=== PATIENT | female | born 1970 | race Caucasian/White ===

== ENCOUNTER 2017-04-10 14:04 | Inpatient (IN) | payer OTHER ==
[~2017-04-10] VITALS: Ht 165.1 cm; Wt 110.8 kg
[2017-04-10 14:18] VITALS: BP 135/73
[2017-04-10] MEDS ORDERED: ATENOLOL25 MG PO (14:23)
[2017-04-10] MEDS ORDERED: ADVAIR 250/5028 PUFF IN (14:23)
--- NOTE | 2017-04-10 15:43 | RADIOLOGY REPORT PS360 ---
CHEST(2 VIEWS-NOT PORTABLE) HISTORY: COUGH,CONGESTION ORDERING PHYSICIAN: Cecilia Griffiths MD PATIENT AGE: 47 years COMPARISON: None available FINDINGS: Normal heart size. There is diffuse bilateral opacification of the lungs. This has a somewhat nodular appearance in the right midlung, right suprahilar region, and left suprahilar area. While this may only be related to diffuse pneumonia, pulmonary masses with consolidation is also considered. Recommend follow-up exam following adequate treatment for pneumonia. If the opacity persists then CT will be needed for further evaluation. No acute bony anomalies. No obvious effusion. IMPRESSION Diffuse bilateral lung opacification probably related to diffuse pneumonia. Cannot exclude ill-defined nodular lesions. Follow-up recommended
--- NOTE | 2017-04-10 16:06 | Emergency Room Report ---
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 Y Clinical Suspician of Infection? N Mental Status: 1 - Regular (Normal Baseline) Sepsis Risk:Low Sepsis Risk Have you (or family members/close friends) recently traveled outside the [place]? N If Yes, where/when: Have you had exposure to infectious disease within the past month? TB? Other? Specify: I had reviewed the history OBTAINED ABOVE, IN ADDITIN SHE HAS DIARRHEA. Source patient, RN notes reviewed Exam Limitations no limitations ALLERGIES Coded Allergies: codeine (Mild, 04/10/17) Home Medications Reported Medications FLUTICASONE/SALMETEROL (Advair 250-50 Diskus) 1 PUFF IN BID Atenolol (Atenolol) 12.5 MG PO DAILY History Medical History General More? 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 Respiratory see HPI, cough, shortness of breath Cardiovascular no symptoms reported Gastrointestinal denies see HPI, diarrhea (DEC PO INTAKE) Genitourinary no symptoms reported. Musculoskeletal no symptoms reported Skin no symptoms reported Psychiatric/Neurological no symptoms reported Physical Exam Vital Signs Vital Signs Date Time Temp Pulse Resp B/P Pulse O2 O2 Flow FiO2 Ox Delivery Rate 04/10 1539 101 14 149/82 96 04/10 1418 99.8 106 18 135/73 92 - WBC >12,000 or <4,000 or 10% bands? 2 or more SIRS Criteria Met? B/P:149/82 MAP:93 Creatinine >2.0? UA output<0.5ml/kg/hr for 2 hrs? Platelet count >100,000? Lactate >2.0mmol/1? INR >1.2 or PTT > than 60 sec? Evidence of Organ Dysfunction? Provider documented clinical suspician of infection? N Sepsis Criteria Count: 1 Sepsis Risk: Low Sepsis Risk General Appearance normal appearance, WD/WN Eye Exam - bilateral eye normal exam, bilateral eye PERRL, bilateral eye EOMI Ear, Nose, Throat hearing grossly normal, normal ENT inspection Neck normal inspection, non-tender, supple, full range of motion Respiratory Status Yes: trachea midline, chest symmetrical, non tender chest. No: respiratory distress. Lung Sounds bilateral: normal breath sounds, lungs clear. 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 No Results/Orders Laboratory Tests 04/10/17 1425: Influenza Type A Ag NOT DETECTED, Influenza Type B Ag NOT DETECTED Current Medication Orders Sig/Yoly Start time Last Medication Dose Route Stop Time Status Admin Ceftriaxone Sodium 0 .STK-MED ONE 04/10 1556 DC IV Sodium Chloride 100 ML .STK-MED ONE 04/10 1556 DC IV Ceftriaxone Sodium 1 GM ONCE ONE 04/10 1545 DC 04/10 Sodium Chloride 50 ML IV 04/10 1614 1602 Orders Procedure Date/time Status DIFFERENTIAL-WBC 04/10 1650 Active CULTURE, BLOOD 04/10 1542 Active LACTIC ACID 04/10 1542 Active URINALYSIS/COMPLETE 04/10 1534 Active CBC WITH AUTO DIFF 04/10 1534 Active CHEM 12 PROFILE 04/10 1534 Complete CULTURE, THROAT 04/10 1528 Active STREP SCREEN THROAT 04/10 1527 Complete INFLUENZA A&B ANTIGENS 04/10 1426 Complete XRAY/CT/US XRAY/CT/US XRAY chest XR interpretation by discussed w/radiologist Xray Results BILATRAL INFILTRATES Departure Departure Time of Disposition 1558 Disposition Still a Patient Clinical Impression Primary Impression: Community acquired bacterial pneumonia Secondary Impressions: Hypokalemia Condition STABLE Referrals Ra Lobato MD Additional Instructions I DISUCSSED WITHG DR LOBATO WHO AGREED TO ADMIT FOR IV ANTIBIOTICS. dr lobato presented to the Ed and interviewed and examnied the patient Discharge Counseling Counseled pt/family regarding diagnosis, test results, follow up needs ED Critical Care Critical Care No If Critical Care minutes are documented, the time involved in the performance of seperately reportable procedures was not counted toward critical care time documented. I directly delivered medical care to this critically ill and/or injured patient. Timely evaluation and treatment was necessary to address the significant organ system(s) dysfunction present in this patient. at [id number]
--- NOTE | 2017-04-10 16:06 | Emergency Room Report ---
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 Y Clinical Suspician of Infection? N Mental Status: 1 - Regular (Normal Baseline) Sepsis Risk:Low Sepsis Risk Have you (or family members/close friends) recently traveled outside the [place]? N If Yes, where/when: Have you had exposure to infectious disease within the past month? TB? Other? Specify: I had reviewed the history OBTAINED ABOVE, IN ADDITIN SHE HAS DIARRHEA. Source patient, RN notes reviewed Exam Limitations no limitations ALLERGIES Coded Allergies: codeine (Mild, 04/10/17) Home Medications Reported Medications FLUTICASONE/SALMETEROL (Advair 250-50 Diskus) 1 PUFF IN BID Atenolol (Atenolol) 12.5 MG PO DAILY History Medical History General More? 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 Respiratory see HPI, cough, shortness of breath Cardiovascular no symptoms reported Gastrointestinal denies see HPI, diarrhea (DEC PO INTAKE) Genitourinary no symptoms reported. Musculoskeletal no symptoms reported Skin no symptoms reported Psychiatric/Neurological no symptoms reported Physical Exam Vital Signs Vital Signs Date Time Temp Pulse Resp B/P Pulse O2 O2 Flow FiO2 Ox Delivery Rate 04/10 1539 101 14 149/82 96 04/10 1418 99.8 106 18 135/73 92 - WBC >12,000 or <4,000 or 10% bands? 2 or more SIRS Criteria Met? B/P:149/82 MAP:93 Creatinine >2.0? UA output<0.5ml/kg/hr for 2 hrs? Platelet count >100,000? Lactate >2.0mmol/1? INR >1.2 or PTT > than 60 sec? Evidence of Organ Dysfunction? Provider documented clinical suspician of infection? N Sepsis Criteria Count: 1 Sepsis Risk: Low Sepsis Risk General Appearance normal appearance, WD/WN Eye Exam - bilateral eye normal exam, bilateral eye PERRL, bilateral eye EOMI Ear, Nose, Throat hearing grossly normal, normal ENT inspection Neck normal inspection, non-tender, supple, full range of motion Respiratory Status Yes: trachea midline, chest symmetrical, non tender chest. No: respiratory distress. Lung Sounds bilateral: normal breath sounds, lungs clear. 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 No Results/Orders Laboratory Tests 04/10/17 1425: Influenza Type A Ag NOT DETECTED, Influenza Type B Ag NOT DETECTED Current Medication Orders Sig/Yoly Start time Last Medication Dose Route Stop Time Status Admin Ceftriaxone Sodium 0 .STK-MED ONE 04/10 1556 DC IV Sodium Chloride 100 ML .STK-MED ONE 04/10 1556 DC IV Ceftriaxone Sodium 1 GM ONCE ONE 04/10 1545 DC 04/10 Sodium Chloride 50 ML IV 04/10 1614 1602 Orders Procedure Date/time Status DIFFERENTIAL-WBC 04/10 1650 Active CULTURE, BLOOD 04/10 1542 Active LACTIC ACID 04/10 1542 Active URINALYSIS/COMPLETE 04/10 1534 Active CBC WITH AUTO DIFF 04/10 1534 Active CHEM 12 PROFILE 04/10 1534 Complete CULTURE, THROAT 04/10 1528 Active STREP SCREEN THROAT 04/10 1527 Complete INFLUENZA A&B ANTIGENS 04/10 1426 Complete XRAY/CT/US XRAY/CT/US XRAY chest XR interpretation by discussed w/radiologist Xray Results BILATRAL INFILTRATES Departure Departure Time of Disposition 1558 Disposition Still a Patient Clinical Impression Primary Impression: Community acquired bacterial pneumonia Secondary Impressions: Hypokalemia Condition STABLE Referrals Ra Lobato MD Additional Instructions I DISUCSSED WITHG DR LOBATO WHO AGREED TO ADMIT FOR IV ANTIBIOTICS. dr lobato presented to the Ed and interviewed and examnied the patient Discharge Counseling Counseled pt/family regarding diagnosis, test results, follow up needs ED Critical Care Critical Care No If Critical Care minutes are documented, the time involved in the performance of seperately reportable procedures was not counted toward critical care time documented. I directly delivered medical care to this critically ill and/or injured patient. Timely evaluation and treatment was necessary to address the significant organ system(s) dysfunction present in this patient. at [id number]
[2017-04-10 17:08] LABS: HEMOGLOBIN 14.3 g/dL (12.2-16.2); LYMPH # 0.8 K/mm3 (0.7-4.5); LYMPH % 32.4 % (10-50.0)
--- NOTE | 2017-04-10 17:35 | HISTORY AND PHYSICAL REPORT ---
Demographics: Admit date: 04/10/17 Chief complaint: Fever and malaise PRIMARY DIAGNOSIS: BILATERAL PNEUMONIA Allergies: Coded Allergies: codeine (Mild, 04/10/17) History of present illness: History of present illness: 47-year-old female presented to the emergency department today with persistent fevers and malaise along with dry nonproductive cough. Her illness began April 05 and she presented to an outside clinic when she thought she had a "sinus infection". At that time the patient had symptoms of rhinorrhea and nasal congestion. Over the course of the week the patient's symptoms worsened and she developed fevers as high as 102.1 at home. She did not feels if she was getting any better and presented to the emergency department. In the emergency department her evaluation was rather unremarkable. On her lung exam she had some mild wheezing but on chest x-ray had bilateral infiltrates. Patient has been admitted for observation as it is felt her condition could worsen. Patient admits to fevers, chills, poor appetite. Past medical history: Family HX Family Hx Insignificant No Immunization HX Ped.Immunizations UTD Yes DT/Tetanus 1-4 Years Ago General More? Yes Additional hx: X Past Surgical HX Previous Surgery?N Current home meds: Reported Medications FLUTICASONE/SALMETEROL (Advair 250-50 Diskus) 1 PUFF IN BID Atenolol (Atenolol) 12.5 MG PO DAILY Social Hx: Smoking HX Tobacco No Type N/A Are you/the child exposed to second-hand smoke: No Alcohol Alcohol: No Hx of Drug Use Drug Use? No Review of systems: Constitutional see HPI. Respiratory see HPI. Cardiovascular no symptoms reported Gastrointestinal/Abdominal no symptoms reported Genitourinary no symptoms reported. Musculoskeletal no symptoms reported. Neurological Yes: no symptoms reported. Exam: Lab data for last 24 hours: Laboratory Tests 04/10/17 1650: Lactic Acid 0.7 04/10/17 1650: Sodium 134 L, Potassium 3.2 L, Chloride 97 L, Carbon Dioxide 27, BUN 7, Creatinine 0.8, Estimated Creat Clear 154, Estimated GFR (MDRD) 77, Glucose 107 H, Calcium 7.5 L, Total Bilirubin 0.2, AST 83 H, ALT 46, Alkaline Phosphatase 91, Total Protein 6.9, Albumin 2.9 L, Globulin 4.0 H, Albumin/Globulin Ratio 0.7 L, WBC 2.6 L, RBC 4.57, Hgb 14.3, Hct 41.1, MCV 89.9, RDW 12.1, Plt Count 138 L, MPV 8.6, Gran % 62.4, Gran # 1.6 L, Lymphocytes % 32.4, Monocytes % 4.2 , Eosinophils % 0.3, Basophils % 0.8, Lymphocytes # 0.8, Monocytes # 0.1, Eosinophils # 0.0, Basophils # 0.0, PUBS MCHC 34.9, MCH 31.3 H 04/10/17 1425: Influenza Type A Ag NOT DETECTED, Influenza Type B Ag NOT DETECTED Microbiology 04/10 1542 BLOOD: Anaerobic Blood Culture - ORD 04/10 1542 BLOOD: Aerobic Blood Culture - ORD 04/10 1542 BLOOD: Anaerobic Blood Culture - ORD 04/10 1542 BLOOD: Aerobic Blood Culture - ORD 04/10 1528 THROAT: Throat Culture - RECD 04/10 UNK BLOOD: Anaerobic Blood Culture - CAN Cancelled: DUPLICATE REFER TO [id number] AND [id number] ORDERED BY 04/10 UNK BLOOD: Aerobic Blood Culture - CAN Cancelled: DUPLICATE REFER TO [id number] AND [id number] ORDERED BY 04/10 UNK BLOOD: Anaerobic Blood Culture - CAN Cancelled: DUPLICATE REFER TO [id number] AND [id number] ORDERED BY 04/10 UNK BLOOD: Aerobic Blood Culture - CAN Cancelled: DUPLICATE REFER TO [id number] AND [id number] ORDERED BY Admission vital signs: Vital Signs Date Time Temp Pulse Resp B/P Pulse O2 O2 Flow FiO2 Ox Delivery Rate 04/10 1539 101 14 149/82 96 04/10 1418 99.8 106 18 135/73 92 Exam General appearance: normal appearance, alert, awake Eyes: normal exam, anicteric ENT: normal exam, mucous membranes moist Neck: normal inspection, non-tender, no carotid bruit, no JVD Cardiovascular: normal exam Respiratory: aerating well, good air movement, no respiratory distress, wheezing (LEFT LUNG) ABD: normal exam, non-distended, normal bowel sounds Extremities: normal exam Plan: Problem List 1. Community acquired bacterial pneumonia 2. Hypokalemia Plan: Patient will be admitted for observation and placed on Rocephin and azithromycin with blood cultures being drawn. Patient will be observed for fevers. Viral respiratory panel has also been ordered at 1737
--- NOTE | 2017-04-10 17:35 | HISTORY AND PHYSICAL REPORT ---
Demographics: Admit date: 04/10/17 Chief complaint: Fever and malaise PRIMARY DIAGNOSIS: BILATERAL PNEUMONIA Allergies: Coded Allergies: codeine (Mild, 04/10/17) History of present illness: History of present illness: 47-year-old female presented to the emergency department today with persistent fevers and malaise along with dry nonproductive cough. Her illness began April 05 and she presented to an outside clinic when she thought she had a "sinus infection". At that time the patient had symptoms of rhinorrhea and nasal congestion. Over the course of the week the patient's symptoms worsened and she developed fevers as high as 102.1 at home. She did not feels if she was getting any better and presented to the emergency department. In the emergency department her evaluation was rather unremarkable. On her lung exam she had some mild wheezing but on chest x-ray had bilateral infiltrates. Patient has been admitted for observation as it is felt her condition could worsen. Patient admits to fevers, chills, poor appetite. Past medical history: Family HX Family Hx Insignificant No Immunization HX Ped.Immunizations UTD Yes DT/Tetanus 1-4 Years Ago General More? Yes Additional hx: X Past Surgical HX Previous Surgery?N Current home meds: Reported Medications FLUTICASONE/SALMETEROL (Advair 250-50 Diskus) 1 PUFF IN BID Atenolol (Atenolol) 12.5 MG PO DAILY Social Hx: Smoking HX Tobacco No Type N/A Are you/the child exposed to second-hand smoke: No Alcohol Alcohol: No Hx of Drug Use Drug Use? No Review of systems: Constitutional see HPI. Respiratory see HPI. Cardiovascular no symptoms reported Gastrointestinal/Abdominal no symptoms reported Genitourinary no symptoms reported. Musculoskeletal no symptoms reported. Neurological Yes: no symptoms reported. Exam: Lab data for last 24 hours: Laboratory Tests 04/10/17 1650: Lactic Acid 0.7 04/10/17 1650: Sodium 134 L, Potassium 3.2 L, Chloride 97 L, Carbon Dioxide 27, BUN 7, Creatinine 0.8, Estimated Creat Clear 154, Estimated GFR (MDRD) 77, Glucose 107 H, Calcium 7.5 L, Total Bilirubin 0.2, AST 83 H, ALT 46, Alkaline Phosphatase 91, Total Protein 6.9, Albumin 2.9 L, Globulin 4.0 H, Albumin/Globulin Ratio 0.7 L, WBC 2.6 L, RBC 4.57, Hgb 14.3, Hct 41.1, MCV 89.9, RDW 12.1, Plt Count 138 L, MPV 8.6, Gran % 62.4, Gran # 1.6 L, Lymphocytes % 32.4, Monocytes % 4.2 , Eosinophils % 0.3, Basophils % 0.8, Lymphocytes # 0.8, Monocytes # 0.1, Eosinophils # 0.0, Basophils # 0.0, PUBS MCHC 34.9, MCH 31.3 H 04/10/17 1425: Influenza Type A Ag NOT DETECTED, Influenza Type B Ag NOT DETECTED Microbiology 04/10 1542 BLOOD: Anaerobic Blood Culture - ORD 04/10 1542 BLOOD: Aerobic Blood Culture - ORD 04/10 1542 BLOOD: Anaerobic Blood Culture - ORD 04/10 1542 BLOOD: Aerobic Blood Culture - ORD 04/10 1528 THROAT: Throat Culture - RECD 04/10 UNK BLOOD: Anaerobic Blood Culture - CAN Cancelled: DUPLICATE REFER TO [id number] AND [id number] ORDERED BY 04/10 UNK BLOOD: Aerobic Blood Culture - CAN Cancelled: DUPLICATE REFER TO [id number] ORDERED BY 04/10 UNK BLOOD: Anaerobic Blood Culture - CAN Cancelled: DUPLICATE REFER TO [id number] AND [id number] ORDERED BY 04/10 UNK BLOOD: Aerobic Blood Culture - CAN Cancelled: DUPLICATE REFER TO [id number] AND [id number] ORDERED BY Admission vital signs: Vital Signs Date Time Temp Pulse Resp B/P Pulse O2 O2 Flow FiO2 Ox Delivery Rate 04/10 1539 101 14 149/82 96 04/10 1418 99.8 106 18 135/73 92 Exam General appearance: normal appearance, alert, awake Eyes: normal exam, anicteric ENT: normal exam, mucous membranes moist Neck: normal inspection, non-tender, no carotid bruit, no JVD Cardiovascular: normal exam Respiratory: aerating well, good air movement, no respiratory distress, wheezing (LEFT LUNG) ABD: normal exam, non-distended, normal bowel sounds Extremities: normal exam Plan: Problem List 1. Community acquired bacterial pneumonia 2. Hypokalemia Plan: Patient will be admitted for observation and placed on Rocephin and azithromycin with blood cultures being drawn. Patient will be observed for fevers. Viral respiratory panel has also been ordered at 1734
[2017-04-10 17:44] LABS: NEUTROPHILS 58 % (42-76)
[2017-04-10 18:59] VITALS: BP 142/65
[2017-04-10 19:20] VITALS: BP 91/55
[2017-04-10 19:38] LABS: CORONAVIRUS 229E NOT DETECTED (NOT DETECTE); CORONAVIRUS HKU 1 NOT DETECTED (NOT DETECTE); CORONAVIRUS NL63 NOT DETECTED (NOT DETECTE); CORONAVIRUS OC43 NOT DETECTED (NOT DETECTE); RHINOVIRUS/ENTEROVIRUS NOT DETECTED (NOT DETECTE)
[2017-04-10] MEDS ORDERED: LEVOTHYROXINE0.05 M3 NG (20:53)
[2017-04-10 23:44] VITALS: BP 150/74
[2017-04-11 02:40] LABS: URINE BILIRUBIN - DIPSTICK NEGATIVE (NEG); URINE BLOOD 3+ (NEG)
[2017-04-11 04:32] VITALS: BP 152/72
[2017-04-11 07:08] LABS: HEMOGLOBIN 13.5 g/dL (12.2-16.2); LYMPH # 1.2 K/mm3 (0.7-4.5); LYMPH % 40.2 % (10-50.0)
--- NOTE | 2017-04-11 07:29 | ACUTE CARE PROGRESS NOTE (QUA) ---
Progress Notes Subjective Date 04/11/17 Time 0728 Note Patient developed an oxygen requirement yesterday evening. O2 sats dropped to 8485 percent on room air. O2 sats around the 90s with the addition of oxygen via nasal cannula. Patient did not have any temperature detected over 100 degrees. Patient states she feels about the same. She does not look ill. Lungs are relatively clear. Heart has a regular rate and rhythm. Continue Rocephin and azithromycin for community-acquired pneumonia. Change duo nebs to as needed. Repeat chest x-ray tomorrow Objective Findings Laboratory Tests 04/11/17 0646: WBC 2.9 L, RBC 4.36, Hgb 13.5, Hct 39.3, MCV 90.0, RDW 12.1, Plt Count 146, MPV 8.5, Gran % 52.5, Gran # 1.5 L, Lymphocytes % 40.2, Monocytes % 5.9, Eosinophils % 0.6, Basophils % 0.8, Lymphocytes # 1.2, Monocytes # 0.2, Eosinophils # 0.0, Basophils # 0.0, PUBS MCHC 34.4, MCH 30.9 04/11/17 0100: Urine Color YELLOW, Urine Appearance CLEAR, Urine pH 7.0, Ur Specific [employer] <= 1.005, Urine Protein 1+ H, Urine Ketones NEGATIVE, Urine Blood 3+ H, Urine Nitrate NEGATIVE, Urine Bilirubin NEGATIVE, Urine Urobilinogen 0.2, Ur Leukocyte Esterase NEGATIVE, Urine RBC 10-20, Urine WBC 3-5, Ur Squamous Epith Cells 5-10, Urine Bacteria 1+, Urine Glucose NEGATIVE 04/10/17 1930: Chlamy pneum (TEM-PCR) NOT DETECTED, Adenovirus (PCR) NOT DETECTED, B. pertussis DNA (PCR) NOT DETECTED, Coronavirus OC43 (PCR) NOT DETECTED, Coronavirus HKU1 ( PCR) NOT DETECTED, Coronavirus 229E (PCR) NOT DETECTED, Coronavirus NL63 (PCR) NOT DETECTED, Human Metapneumovir PCR NOT DETECTED, Influenza A (H1) PCR NOT DETECTED, Influ A (H1N1/09) PCR NOT DETECTED, Influenza A (H3) PCR NOT DETECTED, Influenza Type A (PCR) NOT DETECTED, Influenza Type B (PCR) NOT DETECTED, M. pneumoniae (PCR) NOT DETECTED, Parainfluenza 1 (PCR) NOT DETECTED, Parainfluenza 2 (PCR) NOT DETECTED, Parainfluenza 3 (PCR) NOT DETECTED, Parainfluenza 4 (PCR) NOT DETECTED, RSV (PCR) NOT DETECTED, Entero/Rhino (PCR) NOT DETECTED 04/10/17 1650: Lactic Acid 0.7 04/10/17 1650: Sodium 134 L, Potassium 3.2 L, Chloride 97 L, Carbon Dioxide 27, BUN 7, Creatinine 0.8, Estimated Creat Clear 154, Estimated GFR (MDRD) 77, Glucose 107 H, Calcium 7.5 L, Total Bilirubin 0.2, AST 83 H, ALT 46, Alkaline Phosphatase 91, Total Protein 6.9, Albumin 2.9 L, Globulin 4.0 H, Albumin/Globulin Ratio 0.7 L, WBC 2.6 L, RBC 4.57, Hgb 14.3, Hct 41.1, MCV 89.9, RDW 12.1, Plt Count 138 L, MPV 8.6, Gran % 62.4, Gran # 1.6 L, Total Counted 50, Lymphocytes % 32.4, Monocytes % 4.2, Eosinophils % 0.3, Basophils % 0.8, Neutrophils 58, Lymphocytes (Manual) 38, Lymphocytes # 0.8, Monocytes (Manual) 2, Monocytes # 0.1, Eosinophils # 0.0, Basophils # 0.0, Atypical Lymphocytes 2, Platelet Estimate SLIGHT DECREASE, PUBS MCHC 34.9, MCH 31.3 H, Mycoplasma pneumon IgM NON-REACTIVE 04/10/17 1425: Influenza Type A Ag NOT DETECTED, Influenza Type B Ag NOT DETECTED Microbiology 04/11 108 SPUTUM: Organism ID (Sequencing 2)(JOEY) - ORD 04/11 107 SPUTUM: Sputum Culture - ORD 04/11 107 SPUTUM: Gram Stain - ORD 04/10 1730 BLOOD: Anaerobic Blood Culture - RECD 04/10 1730 BLOOD: Aerobic Blood Culture - RECD 04/10 1730 BLOOD: Anaerobic Blood Culture - RECD 04/10 1730 BLOOD: Aerobic Blood Culture - RECD 04/10 152 THROAT: Throat Culture - RECD Last VS-Temp:99.0 B/P:152/72 Pulse:99 Resp:18 SaO2:90 OXYGEN Last weight lbs:245 oz:7 K.329 Method:Bed Scales Assessment/Plan Problem List 1. Community acquired bacterial pneumonia 2. Hypokalemia Patient condition Stable This inpt stay is expected to cross 2 MNs from start of care Yes
--- NOTE | 2017-04-11 07:38 | PHARMACY CLINIC NOTE ---
Patient Demographics Patient Demographics Admission date: 04/10/17 Date: 04/11/17 Time: 0737 Allergies Coded Allergies: codeine (Mild, 04/10/17) HEIGHT- FT: 5 IN: 5.00 K.329 VTE General Information Labs: Laboratory Tests 04/11 04/10 0646 1650 Hematology Hgb (12.2 - 16.2 g/dL) 13.5 14.3 Hct (37.0 - 47.0 %) 39.3 41.1 Plt Count (142 - 424 K/mm3) 146 138 L Disclaimer The following section includes nursing documentation that has been pulled in for pharmacy review. Patient's VTE score: 2 Patient's VTE Risk: VERY LOW RISK Clinical trial participant? No VTE prophylaxis NQF [id number] VTE prophylaxis ordered? Yes Type of prophylaxis/treatment: Lovenox at 0737
[2017-04-11 07:50] VITALS: BP 132/72; BP 152/72
[2017-04-11 08:00] VITALS: BP 132/72
[2017-04-11 12:00] VITALS: BP 105/58
[2017-04-11 16:00] VITALS: BP 115/53
[2017-04-11 19:35] VITALS: BP 126/66
[2017-04-12] VITALS (8 sets, daily range): BP systolic 113–139; BP diastolic 45–71
--- NOTE | 2017-04-12 07:33 | ACUTE CARE PROGRESS NOTE (QUA) ---
Progress Notes Subjective Date 04/12/17 Time 0732 Note Patient reports feeling better. She has remained afebrile. O2 sats still decreased down to 85 percent on room air. These were last checked yesterday evening. Patient looks more energetic. Lungs have end expiratory wheeze heard at the RIGHT base today. Heart has regular rate and rhythm. Clinically patient is improving. Remove oxygen this morning and I have encouraged the patient to ambulate. If oxygen saturation stayed above 90 percent throughout the day the patient be discharged later this afternoon. If O2 sats decrease she will need to stay and a chest x-ray will be repeated Objective Findings Last VS-Temp:98.3 B/P:113/45 Pulse:96 Resp:18 SaO2:90 OXYGEN Last weight lbs:245 oz:5 K.272 Method:Bed Scales Assessment/Plan Problem List 1. Community acquired bacterial pneumonia 2. Hypokalemia Patient condition Stable Plan: continue current care, initiate discharge plan This inpt stay is expected to cross 2 MNs from start of care Yes at 0703
--- NOTE | 2017-04-12 15:30 | RADIOLOGY REPORT PS360 ---
CHEST(2 VIEWS-NOT PORTABLE) HISTORY: progress study Patient Age: 47 years: Female Ordering Physician: Ra Jenkins MD TECHNIQUE: PA and lateral chest COMPARISON :04/10/2017 CXR FINDINGS . Right lung there is been slight progression of central/perihilar perihilar along with subtle progression of infiltrate peripherally at the right mid and lower lung field. Infiltrate at are more evident on the lateral film towards RLL Left lung. Perihilar central infiltrates persist. If anything question perhaps slightly more pronounced perihilar infiltrate centrally. There may be subtle improvement of the more peripheral infiltrates on the left No discrete pleural effusion.. Only. Scant fluid outlining the major fissure bilateral.. Heart upper normal in size. Mediastinum unremarkable. IMPRESSION: Overall bilateral infiltrates are shown no significant improvement. Slight overall progression Right chest lung infiltrates with slight progression -(At both the perihilar and peripheral infiltrates) Left lung with persistent dense perihilar, central infiltrate. Perhaps incremental of peripheral infiltrates in the left
[2017-04-13 03:58] VITALS: BP 113/80
[2017-04-13 07:05] LABS: HEMOGLOBIN 13.5 g/dL (12.2-16.2); LYMPH # 1.3 K/mm3 (0.7-4.5); LYMPH % 24.2 % (10-50.0)
--- NOTE | 2017-04-13 07:09 | ACUTE CARE PROGRESS NOTE (QUA) ---
Progress Notes Subjective Date 04/13/17 Time 0706 Note Patient is without complaints this morning. When ambulating yesterday her O2 sats would decrease into the high 70s. Overnight room air sats dropped to 89 percent. With oxygen patient maintain sats in the 90s. She feels like her cough is loosening. She denies significant shortness of breath at rest and states she is feeling better. Vital signs reviewed. She remains afebrile. Lungs have a rare scattered adventitious sounds otherwise are clear. Heart has a regular rate and rhythm. Abdomen is soft. Chest x-ray from yesterday shows no change in the infiltrates seen on chest x- ray. CT scan of the chest has been ordered. Patient will undergo CT of the chest today. Patient is rather antsy about discharge and she is afebrile and is only requiring oxygen think this is reasonable. She will need home oxygen. She will have her CT scan this morning. We will then give her trial. On room air. However home oxygen will be arranged. She will be discharged home later this afternoon with CT scan has returned. She will discharged home on doxycycline. She will follow-up with her primary care physician Dr. Miller within the next 2-3 days. Objective Findings Last VS-Temp:98.0 B/P:113/80 Pulse:99 Resp:18 SaO2:91 OXYGEN Last weight lbs:244 oz:4 K.79 Method:Bed Scales Assessment/Plan Problem List 1. Community acquired bacterial pneumonia 2. Hypokalemia Patient condition Stable Plan: initiate discharge plan This inpt stay is expected to cross 2 MNs from start of care Yes at 0708
[2017-04-13] MEDS ORDERED: DOXYCYCLINE HY100 M4 PO (07:13)
--- NOTE | 2017-04-13 07:13 | Discharge Summary ---
Demographics Admit date: 04/10/17 Discharge date: 04/13/17 Discharge diagnoses Problem List 1. Atypical pneumonia 2. Hypokalemia History of present illness History of present illness 47-year-old female presented to the emergency department today with persistent fevers and malaise along with dry nonproductive cough. Her illness began April 05 and she presented to an outside clinic when she thought she had a "sinus infection". At that time the patient had symptoms of rhinorrhea and nasal congestion. Over the course of the week the patient's symptoms worsened and she developed fevers as high as 102.1 at home. She did not feels if she was getting any better and presented to the emergency department. In the emergency department her evaluation was rather unremarkable. On her lung exam she had some mild wheezing but on chest x-ray had bilateral infiltrates. Patient has been admitted for observation as it is felt her condition could worsen. Patient admits to fevers, chills, poor appetite. Patient was admitted and placed on Rocephin and azithromycin. Temperature did not rise to over 100 degrees. After 24 hours the patient was afebrile. On the first night of admission she did have a noticeable oxygen requirement and 2 L/m of oxygen via nasal cannula was started. After 48 hours the patient noticed improvement in how she felt without subjective fevers and less breathlessness. Patient was given a trial of room air oxygen. At rest sats were in the mid to high 80s and with ambulation O2 sats dropped to the 70s. Patient was continued on oxygen via nasal cannula. She noticed loosening of her cough. 48 hours after admission chest x-ray was repeated which showed no change in the nodular- appearing infiltrates. Patient later told me that her illness began while she was at the [facility] and was around livestock. Patient underwent CT scanning on the morning of April 13. Patient was rather antsy about discharge and she was clinically stable and only requiring oxygen she was discharged home later today on April 13. She will finish her course of antibiotics, doxycycline. She will follow-up with her primary care physician Dr. Sydnee Evans within 72 hours of discharge from the hospital. Patient will be given copies of her imaging tests. I have are discussed with the patient possibility she may need pulmonology evaluation. Medications Medications: Discharge meds are as noted. Follow up Follow up in office in: 2 DAYS with: SYDNEE EVANS
[2017-04-13] MEDS ORDERED: OXYGEN IH (07:15)
[2017-04-13] MEDS ORDERED: OXYGEN2 IH (07:16)
[2017-04-13 07:30] VITALS: BP 122/62
--- NOTE | 2017-04-13 09:20 | RADIOLOGY REPORT PS360 ---
CT CHEST W/WO CONTRAST COMPARISON: PA and lateral chest 04/12/2017 HISTORY: Follow-up pneumonia TECHNIQUE: Multiple axial scans obtained from the thoracic inlet the hemidiaphragms. Precontrast scans were performed followed by repeat scans after injection of IV contrast. Sagittal coronal reformats were evaluated as well. FINDINGS: Diffuse bilateral ill-defined airspace disease is seen with infiltrates most diffuse and prominent in the upper lobes with small somewhat smaller focal areas of pneumonia in the lower lobes. The screw mediastinum and allison appear normal no abnormal lymphadenopathy noted. Cardiac size is normal. There is no pleural fluid. The bony thorax is normal. Scans into the upper abdomen show both adrenal glands are normal, the gallbladder is grossly normal and there is symmetrical function of the visualized portions of both kidneys which appear normal. IMPRESSION: Findings consistent with acute bilateral airspace disease consistent with acute pneumonia likely bacterial, no findings to suggest endobronchial mass and is no abnormal adenopathy. Suggest continued follow-up.
[2017-04-13 11:11] VITALS: BP 130/42
--- NOTE | 2017-04-13 11:55 | ACUTE CARE PROGRESS NOTE (QUA) ---
Progress Notes Subjective Date 04/13/17 Time 1155 Assessment/Plan Problem List 1. Atypical pneumonia 2. Hypokalemia This inpt stay is expected to cross 2 MNs from start of care Yes Antibiotic Stewardship (2) Infxn that will respond? Yes Right drug,dose,and route? Yes More targeted antbx? No at 1152
[2017-04-13 15:27] VITALS: BP 130/42
--- OUTSIDE RECORDS SUMMARY | 2017-05-16 19:40 | External Medical Summary Rpt ---
Demographics Preferred Language [place] Marital Status Unknown Lutheran Affiliation Unknown Race Unknown Ethnic Group Unknown Author Author GLORY Address Unknown Phone Immunization No patient found.
--- OUTSIDE RECORDS SUMMARY | 2017-05-16 19:40 | External Medical Summary Rpt ---
Author Author , GLORY HOLDER Address Unknown Phone [email or web address] Purpose Continuity of Care Document - 04-10-2017 through 2016 Results Labs Lab Lab Date Result Refere Interp Status Commen Order Detail nces retati t Range on Mycoplasma pneumoniae IgM Ab [Presence] in Serum by Immunoassay (04-10-2017 16:50) Mycopla NON-BRIDGETTE NONREAC complet sma 017 CTIVE TIVE ed pneumon 16:50 iae IgM Ab [Presen ce] in Serum by Immunoa ssay Differential panel, method unspecified - (04-10-2017 16:50) LYMPH 38 % 10% - Normal complet 017 50% ed 16:50 Platele SLIGHT complet ts 017 DECREAS ed [Presen 16:50 E ce] in Blood by Light microsc opy Streptococcus pyogenes Ag [Presence] in Unspecified specimen (04-10-2017 15:28) Strepto NEGATIV complet coccus 017 E ed pyogene 15:28 s Ag [Presen ce] in Unspeci fied specime n Influenza virus A+B Ag [Presence] in Unspecified specimen (04-10-2017 14:25) Influen NOT NOT complet za 017 DETECTE DETECTD ed virus A 14:25 D Ag [Presen ce] in Unspeci fied specime n Influen NOT NOT complet za 017 DETECTE DETECTD ed virus B 14:25 D Ag [Presen ce] in Unspeci fied specime n
--- OUTSIDE RECORDS SUMMARY | 2017-05-16 19:40 | External Medical Summary Rpt ---
Author Author [employer] Organization [employer] Address Unknown Phone Unavailable Purpose Continuity of Care Document - through 2016
--- OUTSIDE RECORDS SUMMARY | 2017-05-16 19:40 | External Medical Summary Rpt ---
Author Author , GLORY HOLDER Address Unknown Phone [email or web address] Purpose Continuity of Care Document - 04-10-2017 [...]
--- OUTSIDE RECORDS SUMMARY | 2017-05-16 19:40 | External Medical Summary Rpt ---
Demographics Preferred Language Sami Marital Status Unknown Episcopal Affiliation Unknown Race Unknown Ethnic Group Unknown Author Author GLORY Address Unknown Phone Immunization No patient found.
--- OUTSIDE RECORDS SUMMARY | 2017-05-16 19:41 | External Medical Summary Rpt ---
Author Author GLORY Hughes, GLORY [place] [employer] Address Unknown Phone Unavailable Results Choriogonadotropin [Units/volume] in Serum or Plasma Observa Value Referen Units Interpr Notes Date tion ce etation Range Choriogon NEG No No No Sep 3 adotropin informati informati informati 2017 6:36 on in on in on in AM [Units/vo source source source lume] in data data data Serum or Plasma Basic metabolic panel in Blood Observa Value Referen Units Interpr Notes Date tion ce etation Range Urea 7 - 18 mg/dL Low No Sep 3 nitrogen informati 2017 6:36 [Mass/vol on in AM ume] in source Serum or data Plasma Calcium 8.5 - mg/dL Low No Sep 3 [Mass/vol 10.1 informati 2017 6:36 ume] in on in AM Serum or source Plasma data Chloride 98 - 107 mmoL/L Normal No Sep 3 [Moles/vo informati 2017 6:36 lume] in on in AM Serum or source Plasma data Carbon 21.0 - mmoL/L Normal No Sep 3 dioxide, 32.0 informati 2017 6:36 total on in AM [Moles/vo source lume] in data Serum or Plasma Creatinin 0.55 - mg/dL Normal No Sep 3 e 1.02 informati 2017 6:36 [Mass/vol on in AM ume] in source Serum or data Plasma Creatinin 50 - 200 ML/MIN Normal No Sep 3 e renal informati 2017 6:36 clearance on in AM source predicted data by Cockcroft -Gault formula Estimated 59- ML/MIN No REFERENCE Sep 3 informati RANGE: 2017 6:36 glomerula on in >60 AM r source ML/MIN/1. filtratio data 73 SQUARE n rate METERSIf (GF this patient is -A merican, then multiply theresult by 1.210. Glucose 74 - 106 mg/dL Normal No Sep 3 [Mass/vol informati 2017 6:36 ume] in on in AM Serum or source Plasma data Potassium 3.5 - 5.1 mmoL/L Normal No Sep 3 informati 2017 6:36 [Moles/vo on in AM lume] in source Serum or data Plasma Sodium 136 - 145 mmoL/L Normal No Sep 3 [Moles/vo informati 2017 6:36 lume] in on in AM Serum or source Plasma data CBC W Auto Differential panel in Blood Observa Value Referen Units Interpr Notes Date tion ce etation Range Basophils 0 - 0.2 K/MM3 Normal No Sep 3 informati 2017 6:36 [#/volume on in AM ] in source Blood by data Automated count Basophils 0.1 - 2.0 % Normal No Sep 3 /100 informati 2017 6:36 leukocyte on in AM s in source Blood by data Automated count Eosinophi 0.0 - 0.4 K/mm3 Normal No Sep 3 ls informati 2017 6:36 [#/volume on in AM ] in source Blood by data Automated count Eosinophi 0.1 - % Normal No Sep 3 ls/100 12.0 informati 2017 6:36 leukocyte on in AM s in source Blood by data Automated count Granulocy 1.8 - 7.8 K/mm3 Normal No Sep 3 praveen informati 2017 6:36 [#/volume on in AM ] in source Blood by data Automated count Granulocy 37.0 - % Normal No Sep 3 praveen/100 80.0 informati 2017 6:36 leukocyte on in AM s in source Blood by data Automated count Hematocri 37.0 - % Normal No Sep 3 t [Volume 47.0 informati 2017 6:36 on in AM Fraction] source of Blood data Hemoglobi 12.2 - g/dL Normal No Sep 3 n 16.2 informati 2017 6:36 [Mass/vol on in AM ume] in source Blood data Lymphocyt 0.7 - 4.5 K/mm3 Normal No Sep 3 es informati 2017 6:36 [#/volume on in AM ] in source Unspecifi data ed specimen by Automated count Lymphocyt 10 - 50.0 % Normal No Sep 3 es informati 2017 6:36 [#/volume on in AM ] in source Unspecifi data ed specimen by Automated count Erythrocy 27 - 31.2 pg Normal No Sep 3 te mean informati 2016 6:36 corpuscul on in AM ar source hemoglobi data n [Entitic mass] Erythrocy 31.8 - g/dl Normal No Sep 3 te mean 35.4 informati 2017 6:36 corpuscul on in AM ar source hemoglobi data n concentra tion [Mass/vol ume] by Automated count Erythrocy 82.2 - fl Normal No Sep 3 te mean 97.8 informati 2017 6:36 corpuscul on in AM ar volume source [Entitic data volume] by Automated count Monocytes 0.1 - 1.0 K/mm3 Normal No Sep 3 informati 2017 6:36 [#/volume on in AM ] in source Blood by data Automated count Monocytes 1.7 - 9.3 % Normal No Sep 3 /100 informati 2017 6:36 leukocyte on in AM s in source Blood by data Automated count Platelet 7.4 - fl Normal No Sep 3 mean 10.4 informati 2017 6:36 volume on in AM [Entitic source volume] data in Blood by Automated count Platelets 142 - 424 K/mm3 No No Sep 3 informati informati 2017 6:36 [#/volume on in on in AM ] in source source Blood data data Erythrocy 4.2 - 5.4 M/mm3 Normal No Sep 3 praveen informati 2017 6:36 [#/volume on in AM ] in source Amniotic data fluid Erythrocy 11.5 - % Normal No Sep 3 te 17.5 informati 2016 6:36 distribut on in AM ion width source [Entitic data volume] by Automated count Leukocyte 4.8 - K/MM3 No No Sep 3 s 10.8 informati informati 2016 6:36 [#/volume on in on in AM ] in source source Blood data data CBC W Auto Differential panel in Blood Observa Value Referen Units Interpr Notes Date tion ce etation Range Basophils 0 - 0.2 K/MM3 Normal No Sep 1 informati 2017 6:46 [#/volume on in AM ] in source Blood by data Automated count Basophils 0.1 - 2.0 % Normal No Sep 1 /100 informati 2016 6:46 leukocyte on in AM s in source Blood by data Automated count Eosinophi 0.0 - 0.4 K/mm3 Normal No Sep 1 ls informati 2016 6:46 [#/volume on in AM ] in source Blood by data Automated count Eosinophi 0.1 - % Normal No Sep 1 ls/100 12.0 informati 2017 6:46 leukocyte on in AM s in source Blood by data Automated count Granulocy 1.8 - 7.8 K/mm3 Low No Sep 1 praveen informati 2017 6:46 [#/volume on in AM ] in source Blood by data Automated count Granulocy 37.0 - % Normal No Sep 1 praveen/100 80.0 informati 2017 6:46 leukocyte on in AM s in source Blood by data Automated count Hematocri 37.0 - % Normal No Sep 1 t [Volume 47.0 informati 2017 6:46 on in AM Fraction] source of Blood data Hemoglobi 12.2 - g/dL Normal No Sep 1 n 16.2 informati 2017 6:46 [Mass/vol on in AM ume] in source Blood data Lymphocyt 0.7 - 4.5 K/mm3 Normal No Sep 1 es informati 2017 6:46 [#/volume on in AM ] in source Unspecifi data ed specimen by Automated count Lymphocyt 10 - 50.0 % Normal No Sep 1 es informati 2017 6:46 [#/volume on in AM ] in source Unspecifi data ed specimen by Automated count Erythrocy 27 - 31.2 pg Normal No Sep 1 te mean informati 2017 6:46 corpuscul on in AM ar source hemoglobi data n [Entitic mass] Erythrocy 31.8 - g/dl Normal No Sep 1 te mean 35.4 informati 2017 6:46 corpuscul on in AM ar source hemoglobi data n concentra tion [Mass/vol ume] by Automated count Erythrocy 82.2 - fl Normal No Sep 1 te mean 97.8 informati 2017 6:46 corpuscul on in AM ar volume source [Entitic data volume] by Automated count Monocytes 0.1 - 1.0 K/mm3 Normal No Sep 1 informati 2017 6:46 [#/volume on in AM ] in source Blood by data Automated count Monocytes 1.7 - 9.3 % Normal No Sep 1 /100 informati 2017 6:46 leukocyte on in AM s in source Blood by data Automated count Platelet 7.4 - fl Normal No Sep 1 mean 10.4 informati 2017 6:46 volume on in AM [Entitic source volume] data in Blood by Automated count Platelets 142 - 424 K/mm3 Normal No Sep 1 informati 2017 6:46 [#/volume on in AM ] in source Blood data Erythrocy 4.2 - 5.4 M/mm3 Normal No Sep 1 praveen informati 2017 6:46 [#/volume on in AM ] in source Amniotic data fluid Erythrocy 11.5 - % Normal No Sep 1 te 17.5 informati 2017 6:46 distribut on in AM ion width source [Entitic data volume] by Automated count Leukocyte 4.8 - K/MM3 Low No Sep 1 s 10.8 informati 2017 6:46 [#/volume on in AM ] in source Blood data UPPER RESPIRATORY PANEL,PCR Observa Value Referen Units Interpr Notes Date tion ce etation Range Adenovi NOT NOT No No No Apr 10 yolanda DNA DETECTE DETECTE informa informa informa 2017 D tion in tion in tion in 7:30 PM [Presen source source source ce] in data data data Unspeci fied specime n by Probe & target amplifi cation method Bordete NOT NOT No No No Apr 10 lla DETECTE DETECTE informa informa informa 2017 pertuss D tion in tion in tion in 7:30 PM is DNA source source source [Presen data data data ce] in Unspeci fied specime n by Probe & target amplifi cation method Chlamyd NOT NOT No No No Apr 10 ophila DETECTE DETECTE informa informa informa 2017 pneumon D tion in tion in tion in 7:30 PM iae DNA source source source data data data [Presen ce] in Unspeci fied specime n by Probe & target amplifi cation method SARS NOT NOT No No No Apr 10 coronav DETECTE DETECTE informa informa informa 2016 irus D tion in tion in tion in 7:30 PM RNA source source source [Presen data data data ce] in Unspeci fied specime n by Probe & target amplifi cation method Human NOT NOT No No No Apr 10 coronav DETECTE DETECTE informa informa informa 2017 irus D tion in tion in tion in 7:30 PM HKU1 source source source RNA data data data detecti on by SARS NOT NOT No No No Apr 10 coronav DETECTE DETECTE informa informa informa 2017 irus D tion in tion in tion in 7:30 PM RNA source source source [Presen data data data ce] in Unspeci fied specime n by Probe & target amplifi cation method SARS NOT NOT No No No Apr 10 coronav DETECTE DETECTE informa informa informa 2017 irus D tion in tion in tion in 7:30 PM RNA source source source [Presen data data data ce] in Unspeci fied specime n by Probe & target amplifi cation method Influen NOT NOT No No No Apr 10 za DETECTE DETECTE informa informa informa 2017 virus A D tion in tion in tion in 7:30 PM H3 RNA source source source data data data [Presen ce] in Unspeci fied specime n by Probe & target amplifi cation method Influen NOT NOT No No No Apr 10 za DETECTE DETECTE informa informa informa 2017 virus A D tion in tion in tion in 7:30 PM H1 RNA source source source data data data [Presen ce] in Isolate by Probe & target amplifi cation method Influen NOT NOT No No No Apr 10 za DETECTE DETECTE informa informa informa 2017 virus A D tion in tion in tion in 7:30 PM H1 RNA source source source data data data [Presen ce] in Unspeci fied specime n by Probe & target amplifi cation method Influen NOT NOT No No No Apr 10 za DETECTE DETECTE informa informa informa 2017 virus B D tion in tion in tion in 7:30 PM RNA source source source [Presen data data data ce] in Unspeci fied specime n by Probe & target amplifi cation method Influen NOT NOT No No No Apr 10 za DETECTE DETECTE informa informa informa 2017 virus A D tion in tion in tion in 7:30 PM RNA source source source [Presen data data data ce] in Unspeci fied specime n by Probe & target amplifi cation method Human NOT NOT No No No Apr 10 metapne DETECTE DETECTE informa informa informa 2017 umoviru D tion in tion in tion in 7:30 PM s Ag source source source [Presen data data data ce] in Unspeci fied specime n Mycopla NOT NOT No No No Apr 10 sma DETECTE DETECTE informa informa informa 2017 pneumon D tion in tion in tion in 7:30 PM iae DNA source source source data data data [Presen ce] in Unspeci fied specime n by Probe & target amplifi cation method Parainf NOT NOT No No No Apr 10 luenza DETECTE DETECTE informa informa informa 2017 virus 1 D tion in tion in tion in 7:30 PM RNA source source source [Presen data data data ce] in Unspeci fied specime n by Probe & target amplifi cation method Parainf NOT NOT No No No Apr 10 luenza DETECTE DETECTE informa informa informa 2017 virus 2 D tion in tion in tion in 7:30 PM RNA source source source [Presen data data data ce] in Unspeci fied specime n by Probe & target amplifi cation method Parainf NOT NOT No No No Apr 10 luenza DETECTE DETECTE informa informa informa 2017 virus 3 D tion in tion in tion in 7:30 PM RNA source source source [Presen data data data ce] in Unspeci fied specime n by Probe & target amplifi cation method Parainf NOT NOT No No No Apr 10 luenza DETECTE DETECTE informa informa informa 2017 virus 4 D tion in tion in tion in 7:30 PM RNA source source source [Presen data data data ce] in Isolate by Probe & target amplifi cation method Rhinovi NOT NOT No No No Apr 10 yolanda+Ent DETECTE DETECTE informa informa informa 2017 eroviru D tion in tion in tion in 7:30 PM s RNA source source source [Presen data data data ce] in Unspeci fied specime n by Probe & target amplifi cation method Respira NOT NOT No No No Apr 10 tory DETECTE DETECTE informa informa informa 2017 syncyti D tion in tion in tion in 7:30 PM al source source source virus data data data RNA [Presen ce] in Unspeci fied specime n by Probe & target amplifi cation method Mycoplasma pneumoniae IgM Ab [Presence] in Serum by Immunoassay Observa Value Referen Units Interpr Notes Date tion ce etation Range Mycopla NON-BRIDGETTE NONREAC No No No Apr 10 sma CTIVE TIVE informa informa informa 2017 pneumon tion in tion in tion in 4:50 PM iae IgM source source source Ab data data data [Presen ce] in Serum by Immunoa ssay CBC W Auto Differential panel in Blood Observa Value Referen Units Interpr Notes Date tion ce etation Range Basophils 0 - 0.2 K/MM3 Normal No Apr 10 inform2016 4:50 [#/volume on in PM ] in source Blood by data Automated count Basophils 0.1 - 2.0 % Normal No Apr 10 informati 2016 4:50 leukocyte on in PM s in source Blood by data Automated count Eosinophi 0.0 - 0.4 K/mm3 Normal No Apr 10 ls informati 2016 4:50 [#/volume on in PM ] in source Blood by data Automated count Eosinophi 0.1 - % Normal No Apr 10 ls/100 12.0 informati 2016 4:50 leukocyte on in PM s in source Blood by data Automated count Granulocy 1.8 - 7.8 K/mm3 Low No Apr 10 praveen informati 2016 4:50 [#/volume on in PM ] in source Blood by data Automated count Granulocy 37.0 - % Normal No Apr 10 praveen/100 80.0 informati 2016 4:50 leukocyte on in PM s in source Blood by data Automated count Hematocri 37.0 - % Normal No Apr 10 t [Volume 47.0 informati 2016 4:50 on in PM Fraction] source of Blood data Hemoglobi 12.2 - g/dL Normal No Apr 10 n 16.2 informati 2016 4:50 [Mass/vol on in PM ume] in source Blood data Lymphocyt 0.7 - 4.5 K/mm3 Normal No Apr 10 es informati 2016 4:50 [#/volume on in PM ] in source Unspecifi data ed specimen by Automated count Lymphocyt 10 - 50.0 % Normal No Apr 10 es informati 2016 4:50 [#/volume on in PM ] in source Unspecifi data ed specimen by Automated count Erythrocy 27 - 31.2 pg High No Apr 10 te mean informati 2016 4:50 corpuscul on in PM ar source hemoglobi data n [Entitic mass] Erythrocy 31.8 - g/dl Normal No Apr 10 te mean 35.4 informati 2016 4:50 corpuscul on in PM ar source hemoglobi data n concentra tion [Mass/vol ume] by Automated count Erythrocy 82.2 - fl Normal No Apr 10 te mean 97.8 informati 2016 4:50 corpuscul on in PM ar volume source [Entitic data volume] by Automated count Monocytes 0.1 - 1.0 K/mm3 Normal No Apr 10 inform2016 4:50 [#/volume on in PM ] in source Blood by data Automated count Monocytes 1.7 - 9.3 % Normal No Apr 10ati 2016 4:50 leukocyte on in PM s in source Blood by data Automated count Platelet 7.4 - fl Normal No Apr 10 mean 10.4 informati 2016 4:50 volume on in PM [Entitic source volume] data in Blood by Automated count Platelets 142 - 424 K/mm3 Low No Apr 10 inform2016 4:50 [#/volume on in PM ] in source Blood data Erythrocy 4.2 - 5.4 M/mm3 Normal No Apr 10 praveen ati 2016 4:50 [#/volume on in PM ] in source Amniotic data fluid Erythrocy 11.5 - % Normal Apr 10 te 17.5 ati 2016 4:50 distribut on in PM ion width source [Entitic data volume] by Automated count Leukocyte 4.8 - K/MM3 Low No Apr 10 s 10.8 ati 2016 4:50 [#/volume on in PM ] in source Blood data Differential panel, method unspecified - Observa Value Referen Units Interpr Notes Date tion ce etation Range Lymphocyt 0 - 5 % Normal Apr 10 es 2016 4:50 Variant/1 on in PM 00 source leukocyte data s in Blood by Manual count LYMPH 38 10 - 50 % Normal Apr 102016 tion in 4:50 PM source data Monocytes 2 - 9 % Normal No Apr 10 informati 2016 4:50 leukocyte on in PM s in source Blood by data Automated count Platele SLIGHT No No No Apr 10 ts DECREAS informa informa informa inform2016 [Presen E tion in tion in tion in tion in 4:50 PM ce] in source source source source Blood data data data data by Light microsc opy Neutrophi 42 - 76 % Normal Apr 10 ls ati 2016 4:50 [#/volume on in PM ] in source Blood by data Automated count Cells No #CELLS No Apr 10 Counted informati informati informati 2017 4:50 Total [#] on in on in on in PM in Blood source source source data data data Lactate [Moles/volume] in Blood Observa Value Referen Units Interpr Notes Date tion ce etation Range Lactate 0.4 - 2.0 mmol/L Normal No Apr 10 [Moles/vo informati 2016 4:50 lume] in on in PM Blood source data Comprehensive metabolic 2000 panel in Serum or Plasma Observa Value Referen Units Interpr Notes Date tion ce etation Range Albumin/G 1.1 - 1.8 No Low No Apr 10 lobulin informati informati 2016 4:50 [Mass on in on in PM ratio] in source source Serum or data data Plasma Albumin 3.4 - 5.0 gm/dL Low No Apr 10 [Mass/vol informati 2016 4:50 ume] in on in PM Serum or source Plasma data Alkaline 46 - 116 U/L Normal No Apr 10 phosphata informati 2016 4:50 se on in PM [Enzymati source c data activity/ volume] in Serum or Plasma Bilirubin 0.2 - 1.0 mg/dL Normal No Apr 10 .total informati 2016 4:50 [Mass/vol on in PM ume] in source Serum or data Plasma Urea 7 - 18 mg/dL Normal No Apr 10 nitrogen informati 2016 4:50 [Mass/vol on in PM ume] in source Serum or data Plasma Calcium 8.5 - mg/dL Low No Apr 10 [Mass/vol 10.1 informati 2016 4:50 ume] in on in PM Serum or source Plasma data Chloride 98 - 107 mmoL/L Low No Apr 10 [Moles/vo informati 2016 4:50 lume] in on in PM Serum or source Plasma data Carbon 21.0 - mmoL/L Normal No Apr 10 dioxide, 32.0 informati 2017 4:50 total on in PM [Moles/vo source lume] in data Serum or Plasma Creatinin 0.55 - mg/dL Normal No Apr 10 e 1.02 informati 2017 4:50 [Mass/vol on in PM ume] in source Serum or data Plasma Creatinin 50 - 200 ML/MIN Normal No Apr 10 e renal informati 2017 4:50 clearance on in PM source predicted data by Cockcroft -Gault formula Estimated 59- ML/MIN No REFERENCE Apr 10 informati RANGE: 2017 4:50 glomerula on in >60 PM r source ML/MIN/1. filtratio data 73 SQUARE n rate METERSIf (GF this patient is -A merican, then multiply theresult by 1.210. Globulin 1.3 - 3.2 gm/dL High No Apr 10 [Mass/vol informati 2016 4:50 ume] in on in PM Serum source data Glucose 74 - 106 mg/dL High No Apr 10 [Mass/vol informati 2016 4:50 ume] in on in PM Serum or source Plasma data Potassium 3.5 - 5.1 mmoL/L Low No Apr 10 inform2016 4:50 [Moles/vo on in PM lume] in source Serum or data Plasma Sodium 136 - 145 mmoL/L Low No Apr 10 [Moles/vo informati 2016 4:50 lume] in on in PM Serum or source Plasma data Aspartate 15 - 37 U/L High No Apr 10 informati 2016 4:50 aminotran on in PM sferase source [Enzymati data c activity/ volume] in Serum or Plasma Alanine 12 - 78 U/L Normal No Apr 10 aminotran inform2016 4:50 sferase on in PM [Enzymati source c data activity/ volume] in Serum or Plasma Protein 6.4 - 8.2 gm/dL Normal No Apr 10 [Mass/vol informati 2016 4:50 ume] in on in PM Serum or source Plasma data Streptococcus pyogenes Ag [Presence] in Unspecified specimen Observa Value Referen Units Interpr Notes Date tion ce etation Range Strepto NEGATIV No No No No Apr 10 coccus E informa informa informa informa 2017 pyogene tion in tion in tion in tion in 3:28 PM s Ag source source source source [Presen data data data data ce] in Unspeci fied specime n Influenza virus A+B Ag [Presence] in Unspecified specimen Observa Value Referen Units Interpr Notes Date tion ce etation Range Influen NOT NOT No No Apr 10 za DETECTE DETECTD informa informa 2017 virus A D tion in tion in 2:25 PM Ag source source [Presen data data ce] in Unspeci fied specime n Influen NOT NOT No No Apr 10 za DETECTE DETECTD informa informa 2017 virus B D tion in tion in 2:25 PM Ag source source [Presen data data ce] in Unspeci fied specime n
--- OUTSIDE RECORDS SUMMARY | 2017-05-16 19:41 | External Medical Summary Rpt ---
Author Author GLORY Hughes, GLORY [employer] Address Unknown Phone Unavailable [...]
--- OUTSIDE RECORDS SUMMARY | 2017-05-16 21:29 | External Medical Summary Rpt ---
Author Author GLORY Hughes, GLORY [employer] Organization [employer] Address Unknown Phone Unavailable [...]
--- OUTSIDE RECORDS SUMMARY | 2017-05-16 21:29 | External Medical Summary Rpt ---
Author Author , GLORY HOLDER Address Unknown Phone [email or web address] Purpose Continuity of Care Document - 04-10-2017 through 2016 Problems Code Diagnosis DOS Provider Status E87.6 HYPOKALEMIA J15.9 UNSPECIFIED BACTERIAL PNEUMONIA J18.9 Pneumonia, unspecified organism Results Labs Lab Lab Date Result Refere [...]
--- OUTSIDE RECORDS SUMMARY | 2017-05-16 21:29 | External Medical Summary Rpt ---
Demographics Preferred Language Slovenian Marital Status Unknown Hoahaoism Affiliation Unknown Race Unknown Ethnic Group Unknown Author Author GLORY Address Unknown Phone Immunization No patient found.
--- OUTSIDE RECORDS SUMMARY | 2017-05-16 21:29 | External Medical Summary Rpt ---
Author Author GLORY Hughes, GLORY [employer] Organization [employer] Address Unknown Phone Unavailable [...] NOT NOT No No No Apr 10 yoalnda+Ent DETECTE DETECTE informa informa informa 2017 eroviru [...]
--- OUTSIDE RECORDS SUMMARY | 2017-05-16 21:29 | External Medical Summary Rpt ---
Author Author , GLORY HOLDER Address Unknown Phone [email or web address] Purpose Continuity of Care Document - 04-10-2017 [...]
--- OUTSIDE RECORDS SUMMARY | 2017-05-16 21:29 | External Medical Summary Rpt ---
Demographics Preferred Language Syriac Marital Status Unknown Mormonism Affiliation Unknown Race Unknown Ethnic Group Unknown Author Author GLORY Address Unknown Phone Immunization No patient found.
== END 2017-04-13 14:50 | disposition home or self-care (01) | DRG 195 ==
LOC: ER 14:04 → 2ND 16:42
PROVIDERS: Emergency Medicine; Family Medicine
DX: J18.9 Pneumonia, unspecified organism (principal); E87.6 Hypokalemia
CPT/HCPCS: G0238; J0456; Q9967